=== PATIENT | female | born 1965 | race Two or more races ===

== ENCOUNTER 2018-07-21 13:26 | Outpatient (CLI) | payer OTHER | END 2018-07-21 13:40 | disposition home or self-care (01) | LOC: RAD 501 13:26 | DX: N20.1 Calculus of ureter (principal) ==

== ENCOUNTER 2023-05-17 07:36 | Outpatient (CLI) | payer OTHER | END 2023-05-17 07:48 | disposition home or self-care (01) | LOC: RAD 07:36 | PROVIDERS: ATTEND Radiology Radiation Oncology | DX: S49.92XA Unspecified injury of left shoulder and upper arm, initial encounter (principal); S40.912A Unspecified superficial injury of left shoulder, initial encounter; S56.902A Unspecified injury of unspecified muscles, fascia and tendons at forearm level, left arm, initial encounter ==

== ENCOUNTER 2023-05-24 12:17 | Outpatient (CLI) | payer OTHER | END 2023-05-24 13:31 | disposition home or self-care (01) | LOC: SONOGRAMA 12:17 | PROVIDERS: ATTEND Physical Medicine & Rehabilitation | DX: M25.511 Pain in right shoulder (principal); M25.512 Pain in left shoulder ==